=== PATIENT | male | born 1980 | race Caucasian/White ===

== ENCOUNTER 2018-02-03 08:48 | Day surgery (SDC) | payer BC, OTHER ==
[~2018-02-03] VITALS: Ht 193 cm; Wt 89.1 kg
[~2018-02-03 08:48] MED LIST: ALBU8.5H8 INH; BACITRACIN OINT 500U/GM, 15 GM ONE; EPINEPHRINE TOPICAL SOLN 1 MG/ML, 30ML ONE; FLUORESCEIN SODIUM 500 MG/5 ML ONE; FLUT9.9S NS; LIDOCAINE 1%-EPI 1:100K, 30ML ONE; MONT10TA9 PO; OXYMETAZOLINE NASAL SPRAY 0.05%, 15ML ONE
[2018-02-03] MEDS ORDERED: LACTATED RINGERS 1,000 ML IV SCH (09:14)
[2018-02-03] MEDS ORDERED: LIDOCAINE-MPF 1%, 5ML ONE (09:17)
[2018-02-03] MEDS ORDERED: MIDAZOLAM 1 MG/ML, 2ML ONE (09:19)
[2018-02-03] MEDS ORDERED: FENTANYL PF 250 MCG/5ML ONE (09:19)
[2018-02-03] MEDS ORDERED: GABAPENTIN 300 MG CAPSULE PO ONE (09:30)
[2018-02-03] MEDS ORDERED: SCOPOLAMINE PATCH, 1.5MG PATCH.TD72 TD ONE (09:30)
[2018-02-03] MEDS ORDERED: ACETAMINOPHEN 500 MG TABLET PO ONE (09:30)
[2018-02-03] MEDS ORDERED: LIDOCAINE-MPF 1%, 2ML INFIL ONE (09:30)
[2018-02-03] MEDS ORDERED: CEFAZOLIN 1,000 MG ONE (09:39)
[2018-02-03] MEDS ORDERED: SUCCINYLCHOLINE 20 MG/ML, 10ML ONE (09:39)
[2018-02-03] MEDS ORDERED: PROPOFOL 10 MG/ML, 20ML ONE (09:39)
[2018-02-03] MEDS ORDERED: ROCURONIUM 10 MG/ML,10ML ONE (09:39)
[2018-02-03] MEDS ORDERED: DEXAMETHASONE 4 MG/ML, 5ML ONE (09:39)
[2018-02-03] MEDS ORDERED: ONDANSETRON 2MG/ML, 2ML ONE (09:39)
[2018-02-03] MEDS ORDERED: METOCLOPRAMIDE 5 MG/ML, 2ML IV PRN (12:30)
[2018-02-03] MEDS ORDERED: FENTANYL PF 100 MCG/2ML IV PRN (12:30)
[2018-02-03] MEDS ORDERED: LABETALOL 5MG/ML, 20ML IV PRN (12:30)
[2018-02-03] MEDS ORDERED: PROMETHAZINE 25 MG/ML, 1ML IV PRN (12:30)
[2018-02-03] MEDS ORDERED: KETOROLAC 30 MG/1 ML IV PRN (12:30)
[2018-02-03] MEDS ORDERED: ONDANSETRON 2MG/ML, 2ML IVPush PRN (12:30)
[2018-02-03] MEDS ORDERED: HYDROmorphone 1 MG/ML, 1ML IV PRN (12:30)
[2018-02-03] MEDS ORDERED: hydrALAzine 20 MG/ML, 1ML IV PRN (12:30)
[2018-02-03] MEDS ORDERED: ALBUTEROL SULFATE 2.5 MG/3 ML NPPB PRN (12:30)
[2018-02-03] MEDS ORDERED: MEPERIDINE/PF 25MG/0.5ML IVPush PRN (12:30)
[2018-02-03] MEDS ORDERED: FENTANYL PF 100 MCG/2ML ONE (13:04)
[2018-02-03] MEDS ORDERED: OXYcodone 5 MG/5 ML ORAL.SOL UDC ONE (13:04)
[2018-02-03] MEDS ORDERED: MEPERIDINE/PF 50 MG/ML ONE (13:04)
[2018-02-03] MEDS: OXYcodone 5 MG/5 ML ORAL.SOL UDC PO PRN ×2 (13:05→15:09)
== END 2018-02-03 16:40 | disposition home or self-care (01) ==
LOC: OR 08:48 → OUT 16:40
PROVIDERS: ATTEND Otolaryngology
DX: J32.0 Chronic maxillary sinusitis (principal); J32.1 Chronic frontal sinusitis; J32.4 Chronic pansinusitis; J32.3 Chronic sphenoidal sinusitis; J33.9 Nasal polyp, unspecified; J34.2 Deviated nasal septum; J33.8 Other polyp of sinus; Z88.8 Allergy status to other drugs, medicaments and biological substances; J45.909 Unspecified asthma, uncomplicated
CPT/HCPCS: 31240; 31253; 31259; 31267; 61782; 87070; 87075; 87076; 87077; 87186; 87205; 88304; J0330; J0690; J1100; J2175; J2250; J2405; J2704; J3010; J3490; J7120

== ENCOUNTER → 2020-12-06 | Outpatient (CLI) | payer OTHER ==
[~2020-12-06] MED LIST changes: -BACITRACIN OINT 500U/GM, 15 GM ONE; -EPINEPHRINE TOPICAL SOLN 1 MG/ML, 30ML ONE; -FLUORESCEIN SODIUM 500 MG/5 ML ONE; +FLUT10.6 INH; -LIDOCAINE 1%-EPI 1:100K, 30ML ONE; +METH4TAB6 PO; +MONT10TA17 PO; -MONT10TA9 PO; -OXYMETAZOLINE NASAL SPRAY 0.05%, 15ML ONE
== END | disposition home or self-care (01) ==
LOC: STAR 15:02
PROVIDERS: ATTEND Otolaryngology
DX: Z20.822 Contact with and (suspected) exposure to COVID-19 (principal)
CPT/HCPCS: U0005; U0003

== ENCOUNTER 2020-12-12 06:03 | Day surgery (SDC) | payer OTHER ==
[2020-12-06 16:23] VITALS: BP 119/81
[~2020-12-12] VITALS: Ht 193 cm; Wt 90.4 kg
[2020-12-12 06:49] VITALS: BP 119/81
[2020-12-12] MEDS ORDERED: LACTATED RINGERS 1,000 ML IV SCH (07:00)
[2020-12-12] MEDS ORDERED: CHLORHEXIDINE 15 ML UDC PO ONE (07:00)
[2020-12-12] MEDS ORDERED: GENTAMICIN 80 MG/2 ML ONE (07:33)
[2020-12-12] MEDS ORDERED: EPINEPHRINE TOPICAL SOLN 1 MG/ML, 30ML ONE (07:33)
[2020-12-12] MEDS ORDERED: FLUORESCEIN SODIUM 500 MG/5 ML ONE (07:34)
[2020-12-12] MEDS ORDERED: BACITRACIN OINT 500U/GM, 15 GM ONE (07:34)
[2020-12-12] MEDS ORDERED: EPINEPHRINE 1 MG/ML, 1ML ONE (07:34)
[2020-12-12] MEDS ORDERED: OXYMETAZOLINE NASAL SPRAY 0.05%,30ML ONE (07:34)
[2020-12-12] MEDS ORDERED: LIDOCAINE/PF 1%, 30ML ONE (07:34)
[2020-12-12] MEDS ORDERED: HYDROCORTISONE 100 MG INJ. ONE (07:46)
[2020-12-12] MEDS ORDERED: FENTANYL PF 250 MCG/5ML ONE (07:47)
[2020-12-12] MEDS ORDERED: MIDAZOLAM 1 MG/ML, 2ML ONE (07:47)
[2020-12-12] MEDS ORDERED: LABETALOL 5MG/ML, 20ML IV PRN (08:00)
[2020-12-12] MEDS ORDERED: OXYcodone 5 MG/5 ML ORAL.SOL UDC PO PRN (08:00)
[2020-12-12] MEDS ORDERED: ACETAMINOPHEN 325 MG TABLET PO PRN (08:00)
[2020-12-12] MEDS ORDERED: DIPHENHYDRAMINE 50 MG/ML, 1ML IVPush PRN (08:00)
[2020-12-12] MEDS ORDERED: hydrALAzine 20 MG/ML, 1ML IV PRN (08:00)
[2020-12-12] MEDS ORDERED: PROMETHAZINE 25 MG/ML, 1ML IVPush PRN (08:00)
[2020-12-12] MEDS ORDERED: MEPERIDINE/PF 25MG/0.5ML IVPush PRN (08:00)
[2020-12-12] MEDS ORDERED: HYDROmorphone 1 MG/ML, 1ML INJ IVPush PRN (08:00)
[2020-12-12] MEDS ORDERED: HALOPERIDOL 5 MG/ML IV PRN (08:00)
[2020-12-12] MEDS ORDERED: GLYCOPYRROLATE 0.2MG/1ML, 5ML ONE (09:50)
[2020-12-12] MEDS ORDERED: PROPOFOL 10 MG/ML, 20ML ONE (09:50)
[2020-12-12] MEDS ORDERED: CEFAZOLIN 1,000 MG ONE (09:50)
[2020-12-12] MEDS ORDERED: NEOSTIGMINE 1 MG/ML, 10ML ONE (09:50)
[2020-12-12] MEDS ORDERED: ROCURONIUM 10MG/ML,5ML ONE (09:50)
[2020-12-12] MEDS ORDERED: DEXAMETHASONE 4 MG/ML, 1ML ONE (09:50)
[2020-12-12] MEDS ORDERED: ONDANSETRON 2MG/ML, 2ML ONE (09:50)
[2020-12-12] MEDS ORDERED: SUCCINYLCHOLINE 20 MG/ML, 10ML ONE (09:50)
[2020-12-12] MEDS ORDERED: OXYcodone 5 MG/5 ML ORAL.SOL UDC ONE (11:21)
[2020-12-12] MEDS ORDERED: FENTANYL PF 100 MCG/2ML ONE (11:21)
[2020-12-12] MEDS ORDERED: ACETAMINOPHEN 650 MG/20.3 ML UDC ONE (11:21)
[2020-12-12] MEDS: FENTANYL PF 100 MCG/2ML IV PRN ×2 (11:33→11:38)
== END 2020-12-12 13:15 | disposition home or self-care (01) ==
LOC: OUT 06:03
PROVIDERS: ATTEND Otolaryngology
DX: J32.4 Chronic pansinusitis (principal); J33.8 Other polyp of sinus; J32.0 Chronic maxillary sinusitis; J34.89 Other specified disorders of nose and nasal sinuses; J45.909 Unspecified asthma, uncomplicated; Z79.899 Other long term (current) drug therapy; Z91.018 Allergy to other foods; Z91.048 Other nonmedicinal substance allergy status; Z98.890 Other specified postprocedural states; Z82.49 Family history of ischemic heart disease and other diseases of the circulatory system
CPT/HCPCS: 31253; 31259; 31267; 87070; 87075; 87077; 87102; 87186; 87205; 88304; J0171; J0690; J1720; J2250; J2405; J2704; J2710; J3010; J7120; J7402; 87076; J1100; J0330; J1580

== ENCOUNTER 2020-12-19 12:09 | Day surgery (SDC) | payer OTHER ==
[~2020-12-19] VITALS: Ht 193 cm; Wt 90.6 kg
[2020-12-19 12:49] VITALS: BP 129/71
[2020-12-19] MEDS ORDERED: AMOXICILLIN PO (13:00)
[2020-12-19] MEDS ORDERED: LIDOCAINE 4% TOPICAL SOLUTION 50 ML TP ONE (13:24)
[2020-12-19] MEDS ORDERED: OXYMETAZOLINE NASAL SPRAY 0.05%, 15ML NAS ONE (13:26)
== END 2020-12-19 13:45 | disposition home or self-care (01) ==
LOC: OUT 12:09
PROVIDERS: ATTEND Otolaryngology
DX: J32.0 Chronic maxillary sinusitis (principal); J33.8 Other polyp of sinus; Z20.822 Contact with and (suspected) exposure to COVID-19; Z79.899 Other long term (current) drug therapy
CPT/HCPCS: 87635